=== PATIENT | male | born 1995 | race Caucasian/White ===

== ENCOUNTER 2024-02-10 07:34 | Emergency (ER) | payer BC, SELFPAY ==
[2024-02-10] VITALS (13 sets, daily range): BP systolic 106–152; BP diastolic 59–110; PULSE 45–67; RESP 12–21; TEMP 36.4; O2SAT 97–100
[2024-02-10 08:06] LABS: Basophils Absolute Auto 0.1 K/mm3 (0.0-0.1); Basophils Percent Auto 0.8 % (0.2-1.2); Eosinophils Absolute Auto 0.2 K/mm3 (0-0.3); Eosinophils Percent Auto 3.1 % (0-4.4); Hematocrit 43.6 % (42.0-52.0); Hemoglobin 15.1 g/dL (14.0-18.0); Immature Granulocyte Absolute 0.02 K/mm3 (0.00-0.031); Immature Granulocyte Percent A 0.3 % (0-0.5); Lymphocytes Absolute Auto 1.68 K/mm3 (0.9-3.2); Lymphocytes Percent Auto 23.8 % (18.3-44.2); Mean Corpuscular HGB Conc 34.6 g/dl (32-36); Mean Corpuscular Hemoglobin 30.9 pg (26-34); Mean Corpuscular Volume 89.3 fl (80-100); Mean Platelet Volume 10.5 fl (7.4-10.4); Monocytes Absolute Auto 0.5 K/mm3 (0.1-0.6); Monocytes Percent Auto 7.5 % (2.6-8.5); Neutrophils Absolute Auto 4.6 K/mm3 (1.3-6.7); Neutrophils Percent Auto 64.5 % (45.5-73.1); Platelet Count Result 211 k/mm3 (150-375); Red Blood Count 4.88 M/mm3 (4.6-6.20); Red Cell Distribution Width 12.3 % (11.5-14.5); White Blood Count 7.1 K/mm3 (4.5-10.0)
[2024-02-10 08:18] LABS: Alanine Aminotransferase 15 U/L (6-50); Albumin Level 4.8 g/dL (3.5-5.1); Alkaline Phosphatase 78 U/L (38-126); Anion Gap 9 mmol/L (4-12); Aspartate Amino Transferase 25 U/L (17-59); Bilirubin,Total 0.8 mg/dL (0.2-1.3); Blood Urea Nitrogen 16 mg/dL (9-20); Calcium 9.8 mg/dL (8.4-10.2); Carbon Dioxide 26 mmol/L (22-30); Chloride 105 mmol/L (98-107); Estimated Glomerular Filt Rate > 60; Glucose 135 mg/dL (65-110); Lipase 68 U/L (23-300); Potassium 3.5 mmol/L (3.4-5.0); Sodium 140 mmol/L (137-145)
--- NOTE | 2024-02-10 08:43 | ED.GENADULT ---
HPI - General Adult General Chief complaint: Nausea/Vomiting/Diarrhea Stated complaint: kidney pain Time Seen by Provider: 02/10/24 07:37 History of Present Illness HPI narrative: 29-year-old male presents emergency department for evaluation of right flank pain with associated nausea vomiting. Patient reports last week he was having some intermittent right back pain which he attributed to heavy lifting. Patient reports he did celebrate his brother over the weekend and did have some nausea and vomiting from that. Patient states he was having some dark urine. Patient states that the right flank pain did increase over the last few days. Upon arrival emergency department patient is complaining of nausea vomiting and generalized weakness, patient declined any medications for pain control this time. Related Data Allergies Allergy/AdvReac Type Severity Reaction Status Date / Time No Known Allergies Allergy Verified 02/10/24 07:57 Review of Systems Review of Systems: All systems reviewed & are unremarkable except as noted in HPI and below Exam Narrative: APPEARANCE: Well appearing, no pain, no distress, well-nourished. HEAD: normocephalic, atraumatic. EYES: PERRLA/EOMI, conjunctivae clear. NOSE: Normal no drainage EARS:TMS clear with good light reflex. THROAT: Pharynx clear, no exudate. NECK: Supple. No adenopathy, no masses. RESPIRATORY: Airway patent, respirations nonlabored. Clear to auscultation bilaterally, no rales, rhonchi, wheezing. CARDIOVASCULAR: Regular rate and rhythm without murmurs rubs or gallops. ABDOMINAL: Right CVA tenderness to palpation MUSCULOSKELETAL: Moves all extremities. Strength/ROM intact, No edema, No calf tenderness. NEURO: Alert. Cranial nerves II through XII intact. Grossly intact SKIN: Warm, dry. Normal Color Course Course Emergency Course: Patient felt improved with treatment Vital Signs Vital signs: Vital Signs Temperature 97.6 F 02/10/24 07:40 Pulse Rate 67 02/10/24 07:40 Respiratory Rate 18 02/10/24 07:40 Blood Pressure 152/110 H 02/10/24 07:40 Pulse Oximetry 100 02/10/24 07:40 Temperature 97.6 F 02/10/24 07:40 Pulse Rate 47 L 02/10/24 10:16 Respiratory Rate 16 02/10/24 10:16 Blood Pressure 114/65 02/10/24 10:07 Pulse Oximetry 99 02/10/24 10:16 Medical Decision Making MDM Narrative Medical decision making narrative: 29-year-old male presenting ED for evaluation of right flank pain and generalized weakness with associated nausea and vomiting. Patient is afebrile with no leukocytosis and a stable hemoglobin patient has no acute abnormalities on his CMP. Patient is tolerating p.o. and did feel improved with IV fluids and rehydration. UA showed no evidence infection or hematuria. Patient symptoms are most likely secondary to gastroenteritis, dehydration secondary to alcohol intoxication. Patient was encouraged to follow a clear liquid diet for the next few days and will be provided Zofran for nausea control. Patient was encouraged of close follow-up with his primary care physician. All questions and concerns were addressed. Differential Diagnosis Differential Diagnosis: Ureteral calculi, urinary tract infection, colitis, diverticulitis, dehydration, gastroenteritis Vital Signs Vital Signs: Vital Signs Temperature 97.6 F 02/10/24 07:40 Pulse Rate 67 02/10/24 07:40 Respiratory Rate 18 02/10/24 07:40 Blood Pressure 152/110 H 02/10/24 07:40 Pulse Oximetry 100 02/10/24 07:40 Temperature 97.6 F 02/10/24 07:40 Pulse Rate 47 L 02/10/24 10:16 Respiratory Rate 16 02/10/24 10:16 Blood Pressure 114/65 02/10/24 10:07 Pulse Oximetry 99 02/10/24 10:16 Lab Data Lab results reviewed: Yes I reviewed the patient's lab results. 02/10/24 08:02 02/10/24 08:02 Labs: Lab Results 02/10/24 02/10/24 02/10/24 Range/Units 08:02 08:47 08:54 WBC 7.1 (4.5-10.0) K/mm3 RBC
[2024-02-10] MEDS: ONDANSETRON INJ 4 MG/2 ML VIAL IV PUSH (08:55)
[2024-02-10] MEDS: SODIUM CHLORIDE 0.9% IV 1,000 ML 999 ML IV CONT (08:56)
[2024-02-10 09:04] LABS: Appearance Urine Clear (Clear); Bilirubin Urine Negative (Negative); Blood Urine Negative (Negative); Color Urine Dark Yellow (Yellow); Glucose Urine UA Negative (Negative); Ketones Urine Trace mg/dL (Negative); Leukocyte Esterase Ur Negative LEU/UL (Negative); Nitrate Urine Negative (Negative); Protein Urine Negative (Negative); Specific Grav Ur 1.027 (1.001-1.035); pH Urine 5.5 (5.0-9.0)
[2024-02-10 09:51] LABS: Add Urine Microscopic? NO
[2024-02-10 10:46] LABS: Influenza A QL RT-PCR Negative (Negative); Influenza B QL RT-PCR Negative (Negative); RSV RNA, RT-PCR Negative (Negative); SARS-CoV-2 RNA PCR Negative (Negative)
== END 2024-02-10 10:33 | disposition home or self-care (01) ==
PROVIDERS: Emergency Provider Emergency Medicine; PCP Family Medicine
DX: R11.2 Nausea with vomiting, unspecified (principal); Z20.822 Contact with and (suspected) exposure to COVID-19
CPT/HCPCS: 36415; 80053; 81003; 83690; 85025; 87637; 96361; 96374; 99284; J2405; J7030